=== PATIENT | male | born 1985 | race Caucasian/White ===

== ENCOUNTER → 2025-08-10 | Outpatient (CLI) | payer BC, SELFPAY ==
--- NOTE | 2025-08-10 16:01 | RAD_ITS ---
PROCEDURE: HAND MIN 3 VIEWS 08/10/2025 REASON FOR EXAM: R/O FRACTURE OF HAND TECHNIQUE: Procedure Code: SUZE Modality: DX Procedure: HAND MIN 3 VIEWS Laterality: Right COMPARISON: None. FINDINGS: BONES: Acute fracture in the distal shaft of the 5th metacarpal with mild lateral displacement of the distal fracture fragment. JOINTS: No dislocation. The joint spaces are normal. SOFT TISSUES: Diffuse swelling in the dorsal and medial hand. RAD/Hand Min 3 Views IMPRESSION: Acute 5th metacarpal shaft fracture. Reading Location: [id number]
== END | disposition home or self-care (01) ==
PROVIDERS: PCP Anesthesiology Pain Medicine; Referring Provider Nurse Practitioner Family; Visit Provider Nurse Practitioner Family
DX: S62.326A Displaced fracture of shaft of fifth metacarpal bone, right hand, initial encounter for closed fracture (principal)
CPT/HCPCS: 73130